=== PATIENT | female | born 1970 | race Caucasian/White ===

== ENCOUNTER 2023-12-12 06:34 | Day surgery (SDC) | payer OTHER, SELFPAY ==
[2023-12-09 07:21] VITALS: BMI 35.9
[2023-12-09 09:00] LABS: % Eosinophils 1.8 % (0-6); % Immature Granulocytes 0.1 % (0-0.5); % Lymphocytes 28.9 % (20.5-51.1); % Neutrophils 59.2 % (42.2-75.2); Absolute Basophils 0.1 10^3/uL (0-0.2); Absolute Eosinophils 0.1 10^3/uL (0-0.7); Absolute Lymphocytes 2.3 10^3/uL (1.2-3.4); Absolute Monocytes 0.7 10^3/uL (0.1-0.6); Absolute Neutrophils 4.6 10^3/uL (1.4-6.5); Hematocrit 42.4 % (37.0-47.0); Mean Corpuscular Hgb 28.9 pg (27.0-31.0); Mean Corpuscular Volume 87.4 fL (81.0-99.0); Mean Platelet Volume 11.2 fL (7.4-10.4); Nucleated Red Blood Cells % 0 %; Platelet Count 339 10^3/uL (130-400); Red Blood Cell Count 4.85 10^6/uL (4.20-5.40); Red Cell Dist. Width 12.7 % (11.5-14.5); White Blood Cell Count 7.8 10^3/uL (4.8-10.8)
[2023-12-09 09:29] LABS: Blood Urea Nitrogen 14 mg/dl (7-17); Calcium 9.5 mg/dl (8.4-10.2); Carbon Dioxide 26 mmol/L (22-30); Chloride 102 mmol/L (98-107); Estimated Creatinine Clearance 96 ml/min; Glucose 85 mg/dl (70-99); Potassium 4.7 mmol/L (3.5-5.1); Sodium 136 mmol/L (135-145); eGFR > 60.00
[2023-12-09 09:42] LABS: Beta HCG Quantitative 2.61 mIU/ml
[2023-12-12] VITALS (9 sets, daily range): BP systolic 102–130; BP diastolic 52–82; BMI 35.9
[2023-12-12] MEDS: NORMOSOL-R 1000 IV (11:31)
[2023-12-12] MEDS: TYLENOL 1000 MG PO (11:40)
--- NOTE | 2023-12-12 14:52 | W.SUR.PREOP ---
Pre-Operative Surgical Note
-
I have examined this patient prior to the performance of the scheduled procedure.
The patient's condition is unchanged from the time of the current History and
Physical and the patient is able to undergo the scheduled procedure.
[2023-12-12] MEDS: SUBLIMAZE 25 MCG IV (15:55)
[2023-12-12] MEDS: ZOFRAN 4 MG IV (16:25)
--- NOTE | 2023-12-14 22:40 | W.IMMPOSTOP ---
Surgical Immed Post Op Note
-
Primary Surgeon: Milady Perrin DO
Assisting Surgeon: none
Pre-op Diagnosis: Postmenopausal bleeding
Post-op Diagnosis: same
Procedure Performed: Hysteroscopy D&C
Anesthesia Type: general LMA
Specimen / Cultures: 1. endocervical curettings 2. endometrial curettings
Estimated Blood Loss: 2 ml
Complications: none
Operative Findings: Uterine cavity normal appearance, no evidence of polyp, mass or tumor. Bilateral tubal ostia seen.
Stable to recovery.
== END 2023-12-12 18:40 | disposition home or self-care (01) ==
LOC: SDS 06:34
PROVIDERS: ATTENDING PHYSICIAN Obstetrics & Gynecology; FAMILY PHYSICIAN Family Medicine
DX: N85.8 Other specified noninflammatory disorders of uterus (principal); N95.0 Postmenopausal bleeding
CPT/HCPCS: 58558; 88305; 36415; 80048; 84702; 85025; 86850; 86900; 86901; 93005

== ENCOUNTER → 2024-02-14 18:59 | Outpatient (REF) | payer OTHER, SELFPAY | LOC: WDC 18:59 | PROVIDERS: ATTENDING PHYSICIAN Obstetrics & Gynecology; FAMILY PHYSICIAN Family Medicine | DX: Z12.31 Encounter for screening mammogram for malignant neoplasm of breast (principal) | CPT/HCPCS: 77063; 77067 ==

== ENCOUNTER → 2025-02-21 18:52 | Outpatient (REF) | payer OTHER, SELFPAY | LOC: WDC 18:52 | PROVIDERS: ATTENDING PHYSICIAN Obstetrics & Gynecology; FAMILY PHYSICIAN Family Medicine | DX: Z12.31 Encounter for screening mammogram for malignant neoplasm of breast (principal) | CPT/HCPCS: 77063; 77067 ==